=== PATIENT | male | born 1970 | race African-American/Black ===

== ENCOUNTER 2018-03-27 18:18 | Emergency (ER) | payer OTHER ==
[~2018-03-27] VITALS: Ht 175.3 cm; Wt 65.8 kg
[2018-03-27 18:20] VITALS: BP 128/84
--- NOTE | 2018-03-27 18:54 | Emergency Room Report ---
History of Present Illness General Chief Complaint: Medical Clearance Source: Patient, EMS Present Illness HPI 47-year-old male in police custody complaining of palpitations after being arrested. Patient also states he hasn't eaten or drank anything in 3 days. Denies actual chest pain, shortness of breath, abdominal pain, vomiting, urinary complaints, headache. He denies any known medical problems. He denies alcohol or drug abuse or smoking. Allergies: Coded Allergies: NUT - UNSPECIFIED (Unverified Allergy, Unknown, 03/27/18) Uncoded Allergies: PEANUTS (Allergy, Unknown, 03/27/18) Patient History Past Medical History: none Past Surgical History: none Pertinent Family History: none Social History: Denies: smoking, alcohol use, drug use Immunizations: UTD Reviewed Nursing Documentation: PMH: Agreed; PSxH: Agreed Nursing Documentation-PMH Past Medical History: No History, Except For Hx Cardiac Problems: Yes Review of Systems All Other Systems: negative except mentioned in HPI Physical Exam Vital Signs Date Time Temp Pulse Resp B/P (MAP) Pulse Ox O2 Delivery O2 Flow Rate FiO2 03/27/18 18:12 98.9 95 22 121/79 97 Nasal Cannula 99.0 Sp02 EP Interpretation: reviewed, normal General Appearance: normal inspection, well appearing, no apparent distress, alert, GCS 15, non-toxic Head: normocephalic, atraumatic Eyes: bilateral eye PERRL, bilateral eye EOMI ENT: normal ENT inspection, hearing grossly normal, normal pharynx, no angioedema, normal voice, TMs + canals normal, uvula midline, moist mucus membranes Neck: normal inspection, full range of motion, supple, thyroid normal, no meningismus, no bony tend Respiratory: normal inspection, lungs clear, normal breath sounds, no rhonchi, no respiratory distress, no retraction, no accessory muscle use, no wheezing, speaking full sentences Cardiovascular #1: regular rate, rhythm, no edema, no JVD, normal capillary refill Gastrointestinal: normal inspection, normal bowel sounds, non tender, soft, no mass, no peritonitis, non-distended, no guarding, no hernia, no pulsatile mass Genitourinary: no CVA tenderness Musculoskeletal: normal inspection, back normal, normal range of motion, no calf tenderness, pelvis stable, Lucie's Sign negative Neurologic: normal inspection, alert, oriented x3, responsive, [employer] of [employer] III-XII nml as tested, motor strength/tone normal, cerebellar normal, normal gait, speech normal Psychiatric: normal inspection, judgement/insight normal, mood/affect normal, no suicidal/homicidal ideation, no delusions Skin: normal inspection, normal color, no rash Lymphatic: normal inspection, no adenopathy Medical Decision Making Diagnostic Impression: Primary Impression: Palpitations Additional Impression: Medical clearance for incarceration ER Course VSS, afebrile ECG is nonischemic, computer readout of sinus arrhythmia is actually due to patient moving during ECG as I witnessed it. Patient was given food and water. He has no medical problems or other symptoms requiring additional workup at this time. DC with [employer] custody EKG Diagnostic Results Rate: normal Rhythm: NSR ST Segments: no acute changes ASA given to the pt in ED: No Last Vital Signs Date Time Temp Pulse Resp B/P (MAP) Pulse Ox O2 Delivery O2 Flow Rate FiO2 03/27/18 18:20 99.0 96 20 128/84 99 Nasal Cannula 99.0 Status: improved Disposition: D/C TO LAW ENFORCEMENT IN CUST ANA THAKKAR M.D. Mar 27, 2018 18:54
[2018-03-27 19:00] VITALS: BP 128/84
--- NOTE | 2018-03-28 16:40 | Cardiology Report ---
APPROVED REPORT EKG Measurement Heart [id number] [place] [id number] Normal sinus rhythm with sinus arrhythmia Normal ECG
== END 2018-03-27 19:00 ==
LOC: EDBD 18:18 → EMR 18:26
DX: R00.2 Palpitations (principal); Z91.018 Allergy to other foods; Z91.010 Allergy to peanuts
CPT/HCPCS: 93005; 99283